=== PATIENT | female | born 1990 | race Two or more races ===

== ENCOUNTER 2024-11-05 13:00 | Emergency (ER) | payer MEDICAID, SELFPAY ==
[2024-11-05 13:00] VITALS: BP 130/94; PULSE 145; RESP 18; TEMP 37.3; O2SAT 96; BMI 30.9
--- NOTE | 2024-11-05 13:09 | PD.EDMEDCL ---
ED Medical Clearance RME/HPI General Chief complaint: Medical Clearance Stated complaint: MEDICAL CLEARANCE Time Seen by Provider: 11/05/24 13:08 Arrival date/time: 11/05/24 13:00 Limitations: no limitations RME / HPI RME / HPI Narrative: 34-year-old female who denies any chronic medical history was brought in today by local Police Department for medical clearance. PD states they were called out to the home after and there was a verbal altercation. There is no reported assault or injuries. Patient suspected being intoxicated. She was brought in for abnormal vital signs. She has no open wounds or bleeding. No loss of conscious. No reported falls. Patient denies any pain. She denies any falls or loss of consciousness. She has no open wounds. She endorses alcohol abuse today. She states she normally drinks twice a week but rarely gets intoxicated. She denies any history of any drug use. Related Information Previous Rx's ?Medication ?Instructions ?Recorded acetaminophen 325 mg capsule 975 mg (3 x 325 mg) PO Q6H PRN 05/26/20 pain #30 caps dexamethasone 6 mg tablet 6 mg PO QDAY #4 tabs 05/26/20 (Decadron) ibuprofen 800 mg tablet 800 mg PO TID PRN pain #30 tabs 05/26/20 docusate sodium 100 mg capsule 100 mg PO BID #60 caps 09/04/21 (Colace) ibuprofen 800 mg tablet 800 mg PO Q6H PRN pain #90 tabs 09/04/21 lanolin 50 % topical ointment 1 applic topical TID PRN skin 09/04/21 irritation #15 tubes hydrocortisone 2.5 % topical cream 1 applic AR QDAY PRN hemorrhoids 09/05/21 with perineal applicator #30 tubes (Proctosol HC) witch peter 50 % topical pads 1 pad topical BID #100 ea 09/05/21 (Tucks (witch peter)) Allergies Allergy/AdvReac Type Severity Reaction Status Date / Time No Known Allergies Allergy Verified 11/05/24 13:09 Review of Systems Review of Systems Systems Reviewed: All systems reviewed, normal except as documented ED Exam General Limitations: Present no limitations General appearance: Present alert and in no apparent distress Head Head exam: Present atraumatic and other (No scalp depression or deformity no wounds.) Eye Eye exam: Present normal appearance, PERRL and EOMI ENT ENT exam: Present normal exam, normal oropharynx and mucous membranes moist Neck Neck exam: Present normal inspection, full ROM, trachea midline and other (No midline tenderness vertebral step-off) Chest Chest inspection: Present normal inspection and symmetric chest wall rise Respiratory Respiratory exam: Present normal lung sounds bilaterally Cardiovascular Cardiovascular exam: Present normal rhythm, tachycardia (She is tachycardic with a heart rate of 120-150) and normal heart sounds Abdominal Exam Abdominal exam: Present soft and normal bowel sounds Extremities Exam Extremities exam: Present normal inspection and full ROM Back Exam Back exam: Present normal inspection and full ROM Neurological Exam Neurological exam: Present alert, oriented X3 and CN II-XII intact Psychiatric Psychiatric exam: Present normal affect and normal mood Skin Skin exam: Present warm, dry, intact and normal color Course Course Course Narrative: Patient declined any workup other than EKG. She was initially agreeable to an IV bolus of normal saline. After 200 mL was infused, patient removed her IV and declined further care. Patient remained in police custody. She is invited return here as needed for any worsening changes or if any further assistance is required. Quality Measures none Orders Category Date Time Status EKG (ED ONLY) *Do not use* NOW Care 11/05/24 13:15 Completed EKG (ED Only) Stat Exams 11/05/24 13:15 Ordered Sodium Chloride 0.9% 1000 ml [Ns] 1,000 ml Med 11/05/24 13:15 Discontinued IV 999 mls/hr Vital Signs Vital signs: Vital Signs Temperature 99.1 F 11/05/24 13:00 Pulse Rate 145 H 11/05/24 13:00 Respiratory Rate 18 11/05/24 13:00 Blood Pressure 130/94 H 11/05/24 13:00 Pulse Oximetry (%) 96 11/05/24 13:00 Oxygen Delivery Method Room Air 11/05/24 13:00 Medical Clearance Patient data External records reviewed:: None Clinical information provided by:: patient and law enforcement Social determinants that could affect healthcare access:: alcohol use Patient has the following chronic illnesses:: n/a How is presenting disease/condition affected by chronic disease/condition?: no chronic disease Evaluation data The following diagnostics were reviewed and interpreted by me:: other (specify) (n/a) Lab and/or radiology exams considered but not ordered:: Patient declined any workup other than EKG. She later declined EKG. Interpretation Summary: n/a Medications / Prescriptions Medications or Prescriptions considered but not ordered:: Zofran Medication administrations:: Medication Administration History Discontinued Medications Sodium Chloride (Ns) 1,000 mls @ 999 mls/hr IV .Q1H1M ONE Stop: 11/05/24 14:15 Last Admin: 11/05/24 13:27 Dose: 999 mls/hr Documented By: SM See above Consultations Consultation(s) initiated? (list below): No Diagnosis Medical Clearance Differential Diagnosis: other Most likely diagnosis given after review of the tests above:: Tachycardia Admission Indicated Admission indicated?: not indicated Admission Request Was there a request for admission?: No Disposition Plan Disposition Plan: other (specify) (Patient remained in police custody) Discharge Plan Plan Patient Disposition: Residential/Court/Law Patient condition on transfer: Stable Prescriptions/Referrals Prescriptions/Med Rec: No Action acetaminophen 325 mg capsule 975 mg PO Q6H PRN (Reason: pain) Qty: 30 0RF ibuprofen 800 mg tablet 800 mg PO TID PRN (Reason: pain) Qty: 30 0RF dexamethasone [Decadron] 6 mg tablet 6 mg PO QDAY Qty: 4 0RF ibuprofen 800 mg tablet 800 mg PO Q6H MDD 4 PRN (Reason: pain) Qty: 90 0RF docusate sodium [Colace] 100 mg capsule 100 mg PO BID Qty: 60 0RF lanolin 50 % ointment 1 applic topical TID PRN (Reason: skin irritation) Qty: 15 0RF hydrocortisone [Proctosol HC] 2.5 % cream with perineal applicator 1 applic AR QDAY PRN (Reason: hemorrhoids) Qty: 30 0RF Tucks (witch peter) 50 % pads, medicated 1 pad topical BID Qty: 100 0RF Referrals: No Primary/Family,Physician [Primary Care Provider] - In 1 week Problem List Clinical Impression: Tachycardia Patient/Caregiver Discharge Instructions Additional Instructions: Patient has declined any interventions or workup here. She may return as needed for any worsening or emergent changes. Print Language: [place]an
--- NOTE | 2024-11-05 13:12 | PC.NURSE ---
brought in by police for elevated heartrate and bp at [facility]. Was in altercation and intoxication pre [employer]. Pt verbally abusive toward this nurse, cussing at nurse and yelling shut up. Initially refused to get out of police car and refused to answer questions just repeats shut up. Initial officer got his sergeant to come and help escort pt inside.
--- NOTE | 2024-11-05 13:12 | PC.NURSE ---
brought in by police at 1300 for elevated heartrate and bp at [facility]. Was in altercation and intoxication pre [employer]. Pt verbally abusive toward this nurse, cussing at nurse and yelling shut up. Initially refused to get out of police car and refused to answer questions just repeats shut up. Initial officer got his sergeant to come and help escort pt inside.
[2024-11-05 13:26] VITALS: PULSE 125
[2024-11-05] MEDS: SODIUM CHLORIDE 0.9% 1000 ML 1,000 ML 999 ML IV (13:27)
--- NOTE | 2024-11-05 13:38 | PC.NURSE ---
PT PULLED OUT IV WITH OFFICER IN ROOM
--- NOTE | 2024-11-05 13:40 | PC.NURSE ---
CODE JEFF CALLED.
--- NOTE | 2024-11-05 13:47 | PC.NURSE ---
CODE JEFF CLEARED
--- NOTE | 2024-11-05 13:51 | PC.NURSE ---
PT REFUSED DRESSING FOR IV
--- NOTE | 2024-11-05 13:51 | PC.NURSE ---
PT REFUSED TREATMENT. PT PULLED OUT IV. APPROX 100ML OF NS WAS GIVEN. CODE RANDEE WAS CALLED THEN CLEARED. PT REFUSED DRESSING FOR IV SITE
== END 2024-11-05 14:07 ==
PROVIDERS: Emergency Provider Family Medicine
DX: Z02.89 Encounter for other administrative examinations (principal); R00.0 Tachycardia, unspecified
CPT/HCPCS: 93005; 99284; J7030

== ENCOUNTER → 2024-12-05 | Outpatient (CLI) | payer MEDICAID, SELFPAY ==
--- NOTE | 2024-12-05 13:00 | XR_ITS ---
Exam: MRI knee without contrast, left Date and time of exam: December 05, 2024 1250 hours INDICATIONS: Injury to the knee November 06, 2024 with knee pain Technique: Multiple axial, coronal, and sagittal sections on the knee have been obtained. T2-Weighted sagittal, fat-suppressed images, TR 3,500, TE 62, T2 weighted coronal fat-saturated images, TR 3,500, TE 62 Proton density sagittal sections, TR 1800, TE 31. T-1 weighted coronal images, TR 524, TE 13.0 Findings: Medial meniscus anterior horn intact. Medial meniscus, body is intact. Posterior horn medial meniscus small peripheral horizontal linear tear. Lateral meniscus anterior horn is intact Lateral meniscus, body is intact Posterior horn lateral meniscus is intact Anterior cruciate ligament mild sprain Posterior cruciate ligament appears intact. Knee effusion is small. Quadriceps and patellar tendons appear intact. There is no evidence of tendinosis. Inflammatory change or fracture of Hoffa's fat pad is not seen. Medial patellar facet demonstrates mild thinning. Lateral patellar facet cartilage demonstrates mild thinning. Trochlear cartilage demonstrates mild thinning. Marrow signal adequate. Medial collateral ligament moderate sprain Meniscocapsular separation body and posterior horn medial meniscus Illiotibial band and fibular collateral ligament are intact. Biceps femoris tendons appear intact. Medial femoral condylar articular cartilage demonstrates mild thinning. Lateral femoral condylar articular cartilage demonstratesmild thinning. Tibial plateau cartilage demonstrates mild thinning. Impression: Small peripheral horizontal linear tear posterior horn medial meniscus Mild sprain anterior cruciate ligament Meniscocapsular separation body and posterior horn medial meniscus Moderate sprain medial collateral ligament
== END | disposition home or self-care (01) ==
PROVIDERS: PCP Nurse Practitioner Family; Referring Provider Nurse Practitioner Family; Visit Provider Nurse Practitioner Family
DX: S83.242A Other tear of medial meniscus, current injury, left knee, initial encounter (principal); X58.XXXA Exposure to other specified factors, initial encounter; S83.512A Sprain of anterior cruciate ligament of left knee, initial encounter; S83.412A Sprain of medial collateral ligament of left knee, initial encounter
CPT/HCPCS: 73721